=== PATIENT | female | born 1940 | race Caucasian/White ===

== ENCOUNTER 2022-06-15 12:00 | Outpatient (RCR) | payer MEDICARE, SELFPAY | END 2023-05-18 08:08 | disposition home or self-care (01) | PROVIDERS: Visit Provider Physician Assistant | DX: M54.50 Low back pain, unspecified (principal); Z51.89 Encounter for other specified aftercare | CPT/HCPCS: 97110; 97140 ==

== ENCOUNTER 2023-09-21 10:17 | Observation (INO) | payer MEDICARE, SELFPAY ==
[2023-09-21 10:24] VITALS: BP 123/80; PULSE 89; RESP 18; TEMP 36.8; O2SAT 99; BMI 26.0
--- NOTE | 2023-09-21 10:56 | CRLHL7_ITS ---
For Patients: As a result of the Century Cures Act, medical imaging exams and procedure reports are released immediately into your electronic medical record. You may view this report before your referring provider. If you have questions, please contact your health care provider. INDICATION: Hematochezia TECHNIQUE: CTA abdomen and pelvis acquired without and with 100 cc Omnipaque 350 IV contrast. COMPARISON: None. FINDINGS: Lower chest: Left basilar linear atelectasis/scarring. The liver, gallbladder, spleen, pancreas, and bilateral adrenal glands are within normal limits. The kidneys perfuse in a normal fashion. There are multiple simple appearing renal cysts bilaterally. No renal calculi or hydroureteronephrosis. The bladder is within normal limits with some minimal bladder wall near the ureterovesicular junctions without definitive appreciable bladder wall mass. The uterus and bilateral adnexa are within normal limits. There is no evidence of bowel obstruction. The appendix is normal. Bowel wall thickening and minimal pericolonic inflammatory changes of the sigmoid colon with several associated diverticula. Findings are suggestive of acute, uncomplicated sigmoid diverticulitis without definitive CT evidence of a diverticular bleed. No free fluid or free air. No pathologically enlarged lymph nodes throughout the abdomen or pelvis. No abdominal aortic aneurysm. No significant atherosclerotic changes. No appreciable diverticular bleed. Tiny fat containing umbilical hernia. No acute fracture or malalignment. No suspicious osseous lesions. IMPRESSION: 1. CT findings suggestive of acute, uncomplicated sigmoid diverticulitis. No free fluid or free air. No intra-abdominal abscess. 2. No definitive CTA evidence to suggest a diverticular bleed. Please note that all CT scans at this facility use dose modulation, iterative reconstruction, and/or weight-based dosing when appropriate to reduce radiation dose to as low as reasonably achievable. Dictated by Heber Santana MD @ 09/21/2023 2:04:15 PM (Electronically Signed)
--- NOTE | 2023-09-21 11:01 | ED_ITS ---
HPI - General Adult General Date Seen: 09/21/23 Chief complaint: GI Bleed Stated complaint: Rectal bleeding Time Seen by Provider: 09/21/23 10:37 Source: patient Mode of arrival: ambulatory Limitations: no limitations History of Present Illness HPI narrative: Patient is an 83-year-old woman who presents for evaluation of GI bleeding. She notes that yesterday she was helping to set [facility] for a [facility] [employer] when she had abrupt onset of discomfort in her lower and mid abdomen. She says this isn't entirely unusual for her as she is chronically constipated, but she thought she might be sick and so she ran to the bathroom. She says nothing happened then but when she came back out she again felt nauseated and then did vomit once at [employer]. She had persistent abdominal pain after that, went home and then had some loose stools which became blood tinged and ultimately she had passage of some clot and bright red blood. She does have a history of some hemorrhoids but has never had problems like this. She is not anticoagulated. Only medication is lisinopril. No fevers, no further vomiting. She does not smoke or drink. History of Caesarean section, no other abdominal surgeries. Normal colonoscopy by her report at age 76. Related Data Home Medications Medication Instructions Recorded Confirmed alprazolam 0.25 mg tablet 0.25 mg PO DAILY PRN 09/21/23 09/21/23 dorzolamide 22.3 mg-timolol 6.8 1 drp ophthalmic (eye) BID 09/21/23 09/21/23 mg/mL eye drops lisinopril 10 1 tab PO DAILY 09/21/23 09/21/23 mg-hydrochlorothiazide 12.5 mg tablet Allergies Allergy/AdvReac Type Severity Reaction Status Date / Time No Known Drug Allergies Allergy Verified 09/21/23 10:31 Review of Systems Status of ROS: Reports: 10 or more systems reviewed and unremarkable except as noted in History and below [facility] Medical History (Updated 09/21/23 @ 13:17 by Becki Franklin MD) Diverticulosis ?K57.90 - Diverticulosis of intestine, part unspecified, without perforation or abscess without bleeding (ICD-10) H/O Mohs micrographic surgery for skin cancer ?Z85.828 - Personal history of other malignant neoplasm of skin (ICD-10) ?Z98.890 - Other specified postprocedural states (ICD-10) Osteopenia ?M85.80 - Other specified disorders of bone density and structure, unspecified site (ICD-10) Surgical History (Updated 09/21/23 @ 12:44 by Brittni Valerio MD) H/O LEEP ?Z98.890 - Other specified postprocedural states (ICD-10) Social History Smoking Status: Never smoker Do you use any of these nicotine containing products: None How often do you have a drink containing alcohol: never How often do you have six or more drinks on one occasion: Never AUDIT-C Alcohol total score: 0 Non-prescribed substance use: denies use Exam Narrative: Exam Narrative: Vital signs as noted above. In general, an alert, well-appearing patient. Head: Normocephalic, atraumatic. Eyes: Pupils are equal reactive. Extraocular movements are full. Conjunctivae are normal. ENT: Mucous membranes are moist. Throat is normal. Neck: Supple without lymphadenopathy. Heart: Regular rate and rhythm. No murmur or rub. Lungs: Clear bilaterally. No increased work of breathing, crackles or wheezes. Abdomen: Soft and nondistended. She has some tenderness localized primarily to the left lower quadrant without rebound guarding or rigidity. Rectal: Unremarkable external hemorrhoids. Dark red bloody matter noted on the glove. No masses. Extremities: Well perfused. No edema. No calf tenderness. Pulses intact. Neurologic: Patient is alert and oriented to person and place. Speech is fluent. Face is symmetric. Moves all extremities equally. Affect: Normal. Skin: Warm and dry. Well perfused. Const: Vital Signs, click to edit/add: Vital Signs - 24 hr 09/21/23 10:24 09/21/23 12:48 Temperature 98.2 F Pulse Rate [Right Pulse Oximeter] 89 76 Respiratory Rate 18 20 Blood Pressure [Ri ght Upper Arm] 123/80 128/76 Pulse Oximetry 99 96 Oxygen Delivery Me thod Room Air Room Air Documenting provider has reviewed patient's vital signs: yes Course Course ED Course: Fecal occult blood was sent but I presume this will be positive. An IV is established, routine labs as well as a CT scan of the abdomen and pelvis, GI bleed protocol is ordered. Would anticipate admission to the hospital for observation and decision as further workup as well as trending hemoglobins. Labs are reassuring. White blood cell count is normal at 8.8, hemoglobin is 15.5. Platelets normal. INR is 0.9. Metabolic panel unremarkable, lactate 1, LFTs aside from an AST of 42 are normal. CRP mildly elevated at 3.3. Fecal occult blood was positive. CT scan of the abdomen has been done but is not read yet. Case was discussed with hospitalist and she has been excepted on the hospitalist service. Will follow up on CT results. No further bleeding while in the emergency department. Vital Signs Vital signs: Initial Vital Signs Temperature 98.2 F 09/21/23 10:24 Temperature Source Temporal Artery Scan 09/21/23 10:24 Pulse Rate 89 09/21/23 10:24 Pulse Rhythm Regular 09/21/23 10:24 Respiratory Rate 18 09/21/23 10:24 Blood Pressure 123/80 09/21/23 10:24 Blood Pressure Mean 94 09/21/23 10:24 Blood Pressure Position Sitting 09/21/23 10:24 Pulse Oximetry 99 09/21/23 10:24 Oxygen Delivery Method Room Air 09/21/23 10:24 Vital Signs Temperature 98.2 F 09/21/23 10:24 Pulse Rate 89 09/21/23 10:24 Respiratory Rate 18 09/21/23 10:24 Blood Pressure 123/80 09/21/23 10:24 Pulse Oximetry 99 09/21/23 10:24 Oxygen Delivery Method Room Air 09/21/23 10:24 Temperature 98.2 F 09/21/23 10:24 Pulse Rate 76 09/21/23 12:48 Respiratory Rate 20 09/21/23 12:48 Blood Pressure 128/76 09/21/23 12:48 Pulse Oximetry 96 09/21/23 12:48 Oxygen Delivery Method Room Air 09/21/23 12:48 Medications Administered Medications: Discontinued Medications Generic Name Dose Route Start Last Admin Trade Name Freq PRN Reason Stop Dose Admin Pantoprazole Sodium 40 mg 09/21/23 10:56 09/21/23 11:17 Pantoprazole Sodium 40 Mg Inj IVP 09/21/23 10:57 40 mg ONCE ONE Administration Medical Decision Making Lab Data Labs: Lab Results 09/21/23 09/21/23 Range/Units 11:03 11:10 WBC 8.81 (4.50-11.00) K/uL RBC 5.15 (4.00-5.20) m/uL Hgb 15.5 (12.0-16.0) gm/dL Hct 48.0 (33.0-51.0) % MCV 93 (80-100) fL MCH 30 (26-34) pg MCHC 32 (32-36) gm/dL RDW Coeff of Mis 13.3 (11.5-15.5) % Plt Count 194 (140-440) K/uL Neut % (Auto) 75.1 H (42.0-72.0) % Lymph % (Auto) 15.2 L (20-44) % Childress % (Auto) 8.3 (0.0-11.0) % Eos % (Auto) 0.8 (0.0-7.0) % Baso % (Auto) 0.5 (0.0-3.0) % Neut # (Auto) 6.60 (1.7-7.0) K/uL Lymph # (Auto) 1.30 (0.90-2.90) K/uL Childress # (Auto) 0.70 (0.00-0.90) K/UL Eos # (Auto) 0.07 (0.00-0.50) K/uL Baso # (Auto) 0.04 (0.00-0.30) K/uL Abs Immat Gran (auto) 0.01 (0.00-0.30) K/uL Imm/Tot Granulo (auto) 0.1 % INR 0.90 L (0.91-1.10) Sodium 138 (135-149) mmol/L Potassium 3.5 L (3.6-5.1) mmol/L Chloride 99 (96-114) mmol/L Carbon Dioxide 30 (20-32) mmol/L Anion Gap 9 (7-15) mEq/L BUN 30 (7-30) mg/dL Creatinine 0.8 (0.5-1.5) mg/dL Estimated Creat Clear 42.18 Estimated GFR 74 ml/min Glucose 113 (60-115) mg/dL Lactate 1.0 (0.5-1.9) mmol/L Calcium 9.7 (8.4-10.6) mg/dL Total Bilirubin 1.1 (0.1-1.5) mg/dL Direct Bilirubin 0.1 (0.0-0.5) mg/dL AST 42 H (12-35) U/L ALT 31 (4-35) U/L Alkaline Phosphatase 46 (40-150) U/L C-Reactive Protein 3.3 H (0.5-1.0) mg/dL Total Protein 7.6 (6.0-8.3) g/dL Albumin 4.5 (3.3-5.0) g/dL Stool Occult Blood Positive A (Negative) Blood Type O Negative Antibody Screen NEGATIVE Discharge Plan Discharge Clinical Impression: Lower gastrointestinal hemorrhage Patient Disposition: Admitted As Observation Condition: Stable
--- OUTSIDE RECORDS SUMMARY | 2023-09-21 11:10 | XMS_ITS | Continuity of Care Document ---
Author Name Unknown Organization [facility] Address [address] [place] [address] Phone Care Team Providers Care Shuttle Preparation Supervisor Name Role Phone Priscila Vaughn Unavailable Unavailable Allergies, Adverse Reactions, Alerts Substance Reaction Status Criticality No Known Allergies Active No Inform ation Medications Medication Instructions Dosage Effective Dates (start - stop) Status Comments gabapentin 300 mg capsule take 1 capsule by oral route 3 times every day 300 MG - Active Procedures Procedure Date Office/Outpatient Visit,Est, Mod 2021 Office/Outpatient Visit,New, [facility] 2021 Advance Directives Directive Yes / No Effective Date File Name No Information Encounters Encounter Description Practice Location Reason(s) For Visit Diagnoses Date Provider Providers Copied on Encounter Office/Outpat ient Visit,Est, Mod [facility], [address], [place], [place], [id number], [place] tel:[phone] [facility] Spinal stenosis, lumbar region with neurogenic claudication Lolly Francois. [facility], [address] [place] [address] [address], [place], [address], [place]. tel:[phone] Referring Provider: Referring Self, [address] [facility] [address], [place], [address]. tel:[phone] Office/Outpat ient Visit,New, [facility], [address], [place], [place], [id number], [place] tel:[phone] [facility] Radiculopathy, lumbar region Blas Bragg. [facility], [address], [place], [place], [address], [place]. tel:[phone] Referring Provider: Yemi Weiner, [facility] [address], [place], [address]. tel:[phone] Family History Family Member Type Diagnosis Age At Onset No Information Payers Payer name Insurance type Covered libertarian ID Authorjessica stapleton(s) [facility] [id number] Social History Type Description Quantity Date Captured Comments Alcohol Use Details Unknown Caffeine Use Details Unknown Tobacco Use Status No Information Smoking Status No Information Sex Female Vital Signs Date / Time: Height Weight BMI Pulse Rate Blood Pressure Temperature Respiratory Rate Body Surface Area Head Circumference Head Circ. Percentile Wt./Felix. Percentile BMI percentile Pulse Ox Inhaled Ox 1:18 PM 67.00 in 77.111 kg (170.00 lbs) 26.6 3 kg/m eter (2) Chief Complaint And Reason For Visit No Information Reason For Referral Reason For Referral No Information History Of Present Illness Encounter Date Complaint History Of Prese nt Illness No Information Functional Status Date Functional Assessmen t No Information Instructions Date Instruction Additional Infor mation No Information Assessments Type Assessment Date assessment Spinal stenosis, lumbar region w ith neurogenic claudication Patient Care Teams Name Effective Dates (start - stop) Status Members No Information
--- OUTSIDE RECORDS SUMMARY | 2023-09-21 11:11 | XMS_ITS | Continuity of Care Document ---
Author Name Unknown Organization [facility] Address [address] [place] [address] Phone Care Team Providers Care Cloth Folder Hand Name Role Phone Priscila Vaughn Unavailable Unavailable Allergies, Adverse Reactions, Alerts Substance Reaction Status Criticality No Known Allergies Active No Inform ation Medications Medication Instructions Dosage Effective Dates (start - stop) Status Comments gabapentin 300 mg capsule take 1 capsule by oral route 3 times every day 300 MG - Active Procedures Procedure Date Office/Outpatient Visit,Est, Mod 2021 Office/Outpatient Visit,New, [facility] 2021 Advance Directives Directive Yes / No Effective Date File Name No Information Encounters Encounter Description Practice Location Reason(s) For Visit Diagnoses Date Provider Providers Copied on Encounter Office/Outpat ient Visit,Est, Mod [facility], [address], [place], [place], [id number], [place] tel:[phone] [facility] Spinal stenosis, lumbar region with neurogenic claudication Lolly Francois. [facility], [address] [place] [address] [address], [place], [address], [place]. tel:[phone] Referring Provider: Referring Self, [address] [facility] [address], [place], [address]. tel:[phone] Office/Outpat ient Visit,New, [facility], [address], [place], [place], [id number], [place] tel:[phone] [facility] Radiculopathy, lumbar region Blas Bragg. [facility], [address], [place], [place], [id number], [place]. tel:[phone] Referring Provider: Yemi Weiner, [facility] [address], [place], [address]. tel:[phone] Family History Family Member Type Diagnosis Age At Onset No Information Payers Payer name Insurance type Covered democrat ID Authorjessica stapleton(s) [facility] [id number] Social History Type Description Quantity Date Captured [...]
[2023-09-21] MEDS: PANTOPRAZOLE SODIUM 40 MG INJ IVP (11:17)
[2023-09-21 11:25] LABS: Basophils Absolute Auto 0.04 K/uL (0.00-0.30); Basophils Percent Auto 0.5 % (0.0-3.0); Eosinophils Absolute Auto 0.07 K/uL (0.00-0.50); Eosinophils Percent Auto 0.8 % (0.0-7.0); Hemoglobin* 15.5 gm/dL (12.0-16.0); Immature Granulocytes Abs Auto 0.01 K/uL (0.00-0.30); Immature Granulocytes Pct Auto 0.1 %; Lymphocytes Percent Auto 15.2 % (20-44); Mean Corpuscular HGB Conc 32 gm/dL (32-36); Mean Corpuscular Hemoglobin 30 pg (26-34); Mean Corpuscular Volume 93 fL (80-100); Monocytes Percent Auto 8.3 % (0.0-11.0); Neutrophils Percent Auto 75.1 % (42.0-72.0); Platelet Count* 194 K/uL (140-440); RDW Coefficient of Variation % 13.3 % (11.5-15.5); Red Blood Count 5.15 m/uL (4.00-5.20); White Blood Count* 8.81 K/uL (4.50-11.00)
[2023-09-21 11:29] LABS: Slide Review Reflex No
[2023-09-21 11:34] LABS: Fecal Occult Blood* Positive (Negative)
[2023-09-21 11:54] LABS: Prothrombin Time 12.7 Seconds
[2023-09-21 11:59] LABS: Albumin* 4.5 g/dL (3.3-5.0); Chloride* 99 mmol/L (96-114)
[2023-09-21 12:00] LABS: Potassium* 3.5 mmol/L (3.6-5.1); Sodium* 138 mmol/L (135-149)
[2023-09-21 12:02] LABS: Creatinine* 0.8 mg/dL (0.5-1.5); Est. Creatinine Clearance* 42.18; Estimated Glomerular Filt Rate 74 ml/min
[2023-09-21 12:03] LABS: Alanine Aminotransferase* 31 U/L (4-35); Alkaline Phosphatase* 46 U/L (40-150); Anion Gap 9 mEq/L (7-15); Aspartate Amino Transferase* 42 U/L (12-35); Bilirubin Direct* 0.1 mg/dL (0.0-0.5); Bilirubin Total* 1.1 mg/dL (0.1-1.5); Blood Urea Nitrogen* 30 mg/dL (7-30); Carbon Dioxide* 30 mmol/L (20-32); Glucose* 113 mg/dL (60-115); Total Protein* 7.6 g/dL (6.0-8.3)
[2023-09-21 12:04] LABS: Calcium* 9.7 mg/dL (8.4-10.6)
[2023-09-21 12:06] LABS: C Reactive Protein* 3.3 mg/dL (0.5-1.0)
[2023-09-21 12:48] VITALS: BP 128/76; PULSE 76; RESP 20; O2SAT 96
--- NOTE | 2023-09-21 13:17 | PM.IMHP1 ---
Hospitalist- H&P: HPI History of Present Illness Date Seen: 09/21/23 Chief complaint: Rectal bleeding Narrative: Julianne Ramos is a 83 year old female who presented to the hospital this morning for bloody stool. Yesterday, she was helping serve food for a at [employer] and noted acute onset of abdominal cramping (not an atypical symptom for her, given history of chronic constipation). After the cramping, she did have 1 episode of nonbloody emesis. The cramping continued, and upon arrival home she had 1 episode of diarrhea. A few hours later she had an episode of bloody diarrhea, and noted passage of bright red blood per rectum approximately three times from overnight into this morning. She has never had hematochezia previously. History of hemorrhoids. Upon chart review, she had diverticulosis on colonoscopy in 2006, last colonoscopy per chart review was normal in 2017. No recent travel, no sick contacts. She did have some pasta elie at [employer] yesterday, no other new foods noted. Denies any dizziness or lightheadedness, no presyncope. No urinary symptoms. Julianne is on no blood thinners. ER course and findings: - Hgb 15.5, normal platelets - K of 3.5 - afebrile, normotensive, no tachycardia - CTA abdomen/pelvis exhibited uncomplicated diverticulitis, no evidence of acute diverticular bleed Medical history updated below. PCP is Dr. Celia Mccain in [place]. Review of Systems Status of ROS: Reports: 10 or more systems reviewed and unremarkable except as noted in History and below Narrative: - no CP, no dyspnea - no recent travel or sick contacts - no skin concerns, no arthralgias - no back pain PFSH [facility] Medical History (Updated 09/21/23 @ 14:18 by Brittni Valerio MD) Glaucoma ?H40.9 - Unspecified glaucoma (ICD-10) Essential hypertension ?I10 - Essential (primary) hypertension (ICD-10) Diverticulosis ?K57.90 - Diverticulosis of intestine, part unspecified, without perforation or abscess without bleeding (ICD-10) H/O Mohs micrographic surgery for skin cancer ?Z85.828 - Personal history of other malignant neoplasm of skin (ICD-10) ?Z98.890 - Other specified postprocedural states (ICD-10) Osteopenia ?M85.80 - Other specified disorders of bone density and structure, unspecified site (ICD-10) Surgical History (Updated 09/21/23 @ 13:22 by Brittni Valerio MD) H/O section ?Z98.891 - History of uterine scar from previous surgery (ICD-10) H/O LEEP ?Z98.890 - Other specified postprocedural states (ICD-10) Family History (Updated 09/21/23 @ 13:22 by Brittni Valerio MD) Mother Diverticulitis Social History (Updated 09/21/23 @ 13:25 by Brittni Valerio MD) Narrative: Lives with Sang in [place], he would be medical decision maker if needed. Three adult children in [place]. Nonsmoker, rare alcohol, previously worked in the school system. Full code. Smoking Status: Never smoker Do you use any of these nicotine containing products: None How often do you have a drink containing alcohol: never How often do you have six or more drinks on one occasion: Never AUDIT-C Alcohol total score: 0 Non-prescribed substance use: denies use Meds Home Medications and Allergies Home Medications Medication Instructions Recorded Confirmed Type alprazolam 0.25 mg tablet 0.25 mg PO DAILY PRN 09/21/23 09/21/23 History dorzolamide 22.3 mg-timolol 6.8 1 drp ophthalmic (eye) BID 09/21/23 09/21/23 History mg/mL eye drops lisinopril 10 1 tab PO DAILY 09/21/23 09/21/23 History mg-hydrochlorothiazide 12.5 mg tablet Allergies Allergy/AdvReac Type Severity Reaction Status Date / Time No Known Drug Allergies Allergy Verified 09/21/23 10:31 Exam Narrative: Exam Narrative: GEN: Alert and oriented, laying comfortably in bed HEENT: EOMIs bilaterally, no scleral icterus or conjunctival pallor CV: RRR, No concerning murmurs R: LCTA bilaterally without concerning wheezing, air movement adequate Ab: soft, nondistended, + discomfort with palpation bilateral lower quadrants, no rebound or guarding Rectal: deferred (performed in ED, + hematochezia) Ext: wwp, no concerning edema Skin: No concerning skin lesions or rashes on exposed skin Neuro: No focal deficits Psych: Appropriate Const: Vital Signs, click to edit/add: Vital Signs - 24 hr 09/21/23 10:24 09/21/23 12:48 Temperature 98.2 F Pulse Rate [Right Pulse Oximeter] 89 76 Respiratory Rate 18 20 Blood Pressure [Ri ght Upper Arm] 123/80 128/76 Pulse Oximetry 99 96 Oxygen Delivery Me thod Room Air Room Air Hospitalist - H&P: Result Labs Labs: Short CBC 09/21/23 Range/Units 11:10 WBC 8.81 (4.50-11.00) K/uL Hgb 15.5 (12.0-16.0) gm/dL Hct 48.0 (33.0-51.0) % Plt Count 194 (140-440) K/uL BMP 09/21/23 11:10 Sodium 138 Potassium 3.5 L Chloride 99 Carbon Dioxide 30 BUN 30 Creatinine 0.8 Glucose 113 Calcium 9.7 Liver Function 09/21/23 Range/Units 11:10 Total Bilirubin 1.1 (0.1-1.5) mg/dL Direct Bilirubin 0.1 (0.0-0.5) mg/dL AST 42 H (12-35) U/L ALT 31 (4-35) U/L Alkaline Phosphatase 46 (40-150) U/L Albumin 4.5 (3.3-5.0) g/dL Assessment and Plan Assessment and plan (1) Hematochezia: Problem comment: - likely diverticular bleed vs internal hemorrhoids - awaiting formal radiology read of CT scan - low dose IVFs, clear liquid diet, serial hemoglobin Status: Acute (2) Diverticulitis: Problem comment: - incidentally noted on 09/21/23 CT - afebrile with normal WBC; defer antibiotics at this time after discussion with patient Status: Acute (3) Essential hypertension: Problem comment: - on Lisinopril-HCTZ at home - will hold on admission 09/21 given bleeding and risk for hypotension Status: Acute Plan - per above - SCDs for ppx (holding pharmacologic ppx given bleeding) - Julianne's son and sister updated at bedside, questions answered
[2023-09-21 13:40] VITALS: BP 131/83; PULSE 77; RESP 14; TEMP 36.4; O2SAT 98; BMI 25.9
[2023-09-21] MEDS: POTASSIUM BICARB 25 MEQ EFFERVESCENT TAB PO (14:11)
[2023-09-21] MEDS: 0.9 % SODIUM CHLORIDE 1000 ml 1,000 ML 125 ML IV ×2 (14:12→22:03)
--- NOTE | 2023-09-21 14:44 | PC.NURSE ---
End of Shift: Patient arrived to floor about 1330, patient pleasant and cooperative. Patient vitally stable, lungs clear, BS WNL, IV running NS at 125. Patient independent in room. Patient has waves of cramping abdominal pain, rates abdominal tenderness 2/10. Patient has not used the toilet since admission. Patient comfortably in bed visiting with visitors.
[2023-09-21 15:00] VITALS: BP 122/68; PULSE 75; RESP 20; TEMP 36.3; O2SAT 96
--- NOTE | 2023-09-21 15:18 | NUTR.NU ---
RDN with MD consult. Patient admitted today for Hematochezia, found to have diverticulitis. History of diverticulosis. Patient is currently on a clear liquid diet. Patient is not appropriate to visit at this time. RDN will attempt to visit with patient at later date.
[2023-09-21] MEDS: ACETAMINOPHEN 325 MG TABLET 975 MG PO (16:21)
[2023-09-21 16:38] LABS: Hemoglobin* 14.5 gm/dL (12.0-16.0)
[2023-09-21 19:00] VITALS: BP 114/64; PULSE 73; TEMP 36.6; O2SAT 94
[2023-09-21] MEDS: HYDROmorphone 0.5 mg/0.5 ml inj IVP (20:32)
[2023-09-21] MEDS: DORZOLAMIDE/TIMOLOL 2-0.5% OPHTH 1 DROP EYE-BOTH (20:36)
[2023-09-21] MEDS: ERTAPENEM 1 GM in 0.9 % SODIUM CHLORIDE Mini-bag 100 ML IVPB (20:39)
[2023-09-21 21:57] LABS: Hemoglobin* 13.7 gm/dL (12.0-16.0)
[2023-09-21] MEDS: SIMETHICONE 80 MG TAB.CHEW 160 MG PO (22:50)
[2023-09-21 23:00] VITALS: BP 102/65; PULSE 71; RESP 18; TEMP 36.6; O2SAT 90
--- NOTE | 2023-09-21 23:43 | PC.NURSE ---
Patient pleasant, alert and oriented. Ambulates independently. Given PRN Tylenol and Dilaudid for lower abdominal pain rated 8-9/10. Patient describes pain as intense cramping that comes and goes. Tolerated clear liquid diet. Reported a brief episode of nausea?at HS that passed. Declined PRN Zofran when offered. VSS. ??
[2023-09-22 03:00] VITALS: BP 91/48; PULSE 73; RESP 18; TEMP 36.6; O2SAT 93
--- NOTE | 2023-09-22 06:42 | PC.NURSE ---
Shift note:Pt is doing well this morning, no fever, bloody stool and N/V reported but did complained of mild abdominal pain and tenderness. Ambulated independently to and from BR. Alert and oriented.
[2023-09-22 06:58] LABS: Basophils Absolute Auto 0.04 K/uL (0.00-0.30); Basophils Percent Auto 0.5 % (0.0-3.0); Eosinophils Absolute Auto 0.05 K/uL (0.00-0.50); Eosinophils Percent Auto 0.6 % (0.0-7.0); Hematocrit 41.2 % (33.0-51.0); Hemoglobin* 13.3 gm/dL (12.0-16.0); Immature Granulocytes Abs Auto 0.01 K/uL (0.00-0.30); Immature Granulocytes Pct Auto 0.1 %; Lymphocytes Percent Auto 19.5 % (20-44); Mean Corpuscular HGB Conc 32 gm/dL (32-36); Mean Corpuscular Hemoglobin 30 pg (26-34); Mean Corpuscular Volume 94 fL (80-100); Monocytes Percent Auto 7.8 % (0.0-11.0); Neutrophils Absolute Auto 5.61 K/uL (1.7-7.0); Neutrophils Percent Auto 71.5 % (42.0-72.0); Platelet Count* 170 K/uL (140-440); RDW Coefficient of Variation % 13.4 % (11.5-15.5); Red Blood Count 4.38 m/uL (4.00-5.20); White Blood Count* 7.85 K/uL (4.50-11.00)
[2023-09-22] MEDS: 0.9 % SODIUM CHLORIDE 1000 ml 1,000 ML 125 ML IV (06:58)
[2023-09-22 07:02] LABS: Slide Review Reflex No
[2023-09-22 07:27] LABS: Albumin* 3.5 g/dL (3.3-5.0); Chloride* 105 mmol/L (96-114)
[2023-09-22 07:28] LABS: Potassium* 3.8 mmol/L (3.6-5.1); Sodium* 139 mmol/L (135-149)
[2023-09-22 07:30] LABS: Creatinine* 0.7 mg/dL (0.5-1.5); Est. Creatinine Clearance* 42.18; Estimated Glomerular Filt Rate 86 ml/min
[2023-09-22 07:31] LABS: Alanine Aminotransferase* 33 U/L (4-35); Alkaline Phosphatase* 52 U/L (40-150); Anion Gap 5 mEq/L (7-15); Aspartate Amino Transferase* 37 U/L (12-35); Bilirubin Total* 0.5 mg/dL (0.1-1.5); Blood Urea Nitrogen* 17 mg/dL (7-30); Carbon Dioxide* 29 mmol/L (20-32); Glucose* 92 mg/dL (60-115); Total Protein* 6.1 g/dL (6.0-8.3)
[2023-09-22 07:32] LABS: Calcium* 8.4 mg/dL (8.4-10.6)
[2023-09-22 07:34] LABS: C Reactive Protein* 4.8 mg/dL (0.5-1.0)
[2023-09-22 07:45] VITALS: BP 109/70; PULSE 74; RESP 18; TEMP 36.4; O2SAT 96
[2023-09-22] MEDS: DORZOLAMIDE/TIMOLOL 2-0.5% OPHTH 1 DROP EYE-BOTH ×2 (09:24→23:23)
--- NOTE | 2023-09-22 10:43 | P.IMPN_ITS ---
Progress Note: A&P Assessment and plan (1) Hematochezia: Problem details: - likely diverticular bleed - following Hgb (15.5-->13.3), hemodynamically stable Status: Acute (2) Diverticulitis: Problem details: - incidentally noted on 09/21/23 CT - afebrile with normal WBC - Ertapenem initiated 09/21 for worsening abdominal pain Status: Acute (3) Essential hypertension: Problem details: - on Lisinopril-HCTZ at home - will hold on admission 09/21 given bleeding and risk for hypotension Status: Acute Plan - per above - continue to follow Hgb, advance diet - likely d/c home in 1-2 days pending clinical stability Subjective Date Seen: 09/22/23 Interval history: Julianne had a flare of abdominal pain overnight, Ertapenem initiated. No hematochezia overnight. Passing flatus, no BM. Tolerating clears. +UOP. No fevers, labs stable. No concerns for hospitalist team. Exam Narrative: Exam Narrative: GEN: Alert and oriented, nontoxic in appearance HEENT: EOMIs bilaterally, no scleral icterus CV: RRR, No concerning murmurs R: LCTA bilaterally without concerning wheezing, air movement adequate Ab: Mild distention but soft, + ttp bilateral lower quadrants, no guarding, + BS Ext: wwp, no concerning edema Skin: No concerning skin lesions or rashes on exposed skin Neuro: Nonfocal Psych: Appropriate Const: Vital Signs, click to edit/add: Vital Signs - 24 hr 09/21/23 12:48 09/21/23 13:40 09/21/23 15:00 Temperature 97.6 F 97.4 F L Pulse Rate [Pulse Oximeter] 77 75 Pulse Rate [Right Pulse Oximeter] 76 Respiratory Rate 20 14 20 Blood Pressure [Le ft Arm] 122/68 Blood Pressure [Ri ght Arm] 131/83 Blood Pressure [Ri ght Upper Arm] 128/76 Pulse Oximetry 96 98 96 Oxygen Delivery Me thod Room Air Room Air Room Air 09/21/23 19:00 09/21/23 23:00 09/22/23 03:00 Temperature 97.9 F 98 F 97.9 F Pulse Rate [Pulse Oximeter] 73 71 73 Pulse Rate [Right Pulse Oximeter] Respiratory Rate 18 18 Blood Pressure [Le ft Arm] 114/64 102/65 91/48 L Blood Pressure [Ri ght Arm] Blood Pressure [Ri ght Upper Arm] Pulse Oximetry 94 90 93 Oxygen Delivery Me thod Room Air Room Air Room Air 09/22/23 07:45 Temperature 97.6 F Pulse Rate [Pulse Oximeter] 74 Pulse Rate [Right Pulse Oximeter] Respiratory Rate 18 Blood Pressure [Le ft Arm] 109/70 Blood Pressure [Ri ght Arm] Blood Pressure [Ri ght Upper Arm] Pulse Oximetry 96 Oxygen Delivery Me thod Room Air Labs Labs: Laboratory Results - last 24 hr 09/21/23 09/21/23 09/21/23 11:03 11:10 16:31 WBC 8.81 RBC 5.15 Hgb 15.5 14.5 Hct 48.0 MCV 93 MCH 30 MCHC 32 RDW Coeff of Mis 13.3 Plt Count 194 Neut % (Auto) 75.1 H Lymph % (Auto) 15.2 L [place] % (Auto) 8.3 Eos % (Auto) 0.8 Baso % (Auto) 0.5 Neut # (Auto) 6.60 Lymph # (Auto) 1.30 [place] # (Auto) 0.70 Eos # (Auto) 0.07 Baso # (Auto) 0.04 Abs Immat Gran (auto) 0.01 Imm/Tot Granulo (auto) 0.1 INR 0.90 L Sodium 138 Potassium 3.5 L Chloride 99 Carbon Dioxide 30 Anion Gap 9 BUN 30 Creatinine 0.8 Estimated Creat Clear 42.18 Estimated GFR 74 Glucose 113 Lactate 1.0 Calcium 9.7 Total Bilirubin 1.1 Direct Bilirubin 0.1 AST 42 H ALT 31 Alkaline Phosphatase 46 C-Reactive Protein 3.3 H Total Protein 7.6 Albumin 4.5 Stool Occult Blood Positive A Blood Type O Negative Antibody Screen NEGATIVE 09/21/23 09/22/23 21:50 06:25 WBC 7.85 RBC 4.38 Hgb 13.7 13.3 Hct 41.2 MCV 94 MCH 30 MCHC 32 RDW Coeff of Mis 13.4 Plt Count 170 Neut % (Auto) 71.5 Lymph % (Auto) 19.5 L [place] % (Auto) 7.8 Eos % (Auto) 0.6 Baso % (Auto) 0.5 Neut # (Auto) 5.61 Lymph # (Auto) 1.50 [place] # (Auto) 0.60 Eos # (Auto) 0.05 Baso # (Auto) 0.04 Abs Immat Gran (auto) 0.01 Imm/Tot Granulo (auto) 0.1 INR Sodium 139 Potassium 3.8 Chloride 105 Carbon Dioxide 29 Anion Gap 5 L BUN 17 Creatinine 0.7 Estimated Creat Clear 42.18 Estimated GFR 86 Glucose 92 Lactate Calcium 8.4 Total Bilirubin 0.5 Direct Bilirubin AST 37 H ALT 33 Alkaline Phosphatase 52 C-Reactive Protein 4.8 H Total Protein 6.1 Albumin 3.5 Stool Occult Blood Blood Type Antibody Screen
[2023-09-22 11:00] VITALS: BP 100/68; PULSE 72; RESP 18; TEMP 36.6; O2SAT 99
--- NOTE | 2023-09-22 14:34 | PC.NURSE ---
shift note: pt up indept in room. iv patent. pt tolerating clrs. No BM's. denies pain
[2023-09-22 15:00] VITALS: BP 119/67; PULSE 77; RESP 18; TEMP 36.4; O2SAT 97
[2023-09-22 19:00] VITALS: BP 141/80; PULSE 75; RESP 18; TEMP 36.6; O2SAT 96
[2023-09-22] MEDS: ACETAMINOPHEN 325 MG TABLET 975 MG PO (20:00)
[2023-09-22] MEDS: ERTAPENEM 1 GM in 0.9 % SODIUM CHLORIDE Mini-bag 100 ML IVPB (23:22)
--- NOTE | 2023-09-22 23:25 | PC.NURSE ---
Nursing Care Hours: 0215-2657 Pt this shift calm and cooperative with cares, alert and oriented. Independent ambulation in room. Pain reported in LUQ after dinner, rated 5/10. Treated per eMAR and warm blankets provided, treatment effective. Encouraged to walk the smart to promote motility. Sm BM and scant blood clot reported but not observed by ghost writer. VSS.
[2023-09-22 23:29] VITALS: BP 155/66; PULSE 72; RESP 18; TEMP 36.7; O2SAT 94
[2023-09-23 04:11] VITALS: BP 110/72; PULSE 64; RESP 18; TEMP 36.6; O2SAT 90
--- NOTE | 2023-09-23 05:33 | PC.NURSE ---
2413-2695: Patient pleasant and cooperative. Independent in room. BS active. Mild abdomen ache after eating a yogurt. Afebrile. Denies N/V. Passed a few bloody clots but no stool. Voiding.
[2023-09-23 06:58] LABS: Lymphocytes Percent Auto 28.4 % (20-44); Mean Corpuscular HGB Conc 32 gm/dL (32-36); Mean Corpuscular Hemoglobin 30 pg (26-34); Mean Corpuscular Volume 95 fL (80-100); Monocytes Percent Auto 8.8 % (0.0-11.0); Neutrophils Percent Auto 60.1 % (42.0-72.0); Platelet Count* 175 K/uL (140-440); RDW Coefficient of Variation % 13.2 % (11.5-15.5); Red Blood Count 4.32 m/uL (4.00-5.20); White Blood Count* 5.66 K/uL (4.50-11.00)
[2023-09-23 06:59] LABS: Basophils Absolute Auto 0.05 K/uL (0.00-0.30); Basophils Percent Auto 0.9 % (0.0-3.0); Eosinophils Absolute Auto 0.09 K/uL (0.00-0.50); Eosinophils Percent Auto 1.6 % (0.0-7.0); Immature Granulocytes Abs Auto 0.01 K/uL (0.00-0.30); Immature Granulocytes Pct Auto 0.2 %; Lymphocytes Absolute Auto 1.61 K/uL (0.90-2.90); Slide Review Reflex No
[2023-09-23 07:34] LABS: Albumin* 3.3 g/dL (3.3-5.0); Chloride* 107 mmol/L (96-114); Sodium* 141 mmol/L (135-149)
[2023-09-23 07:35] LABS: Potassium* 3.6 mmol/L (3.6-5.1)
[2023-09-23 07:38] LABS: Alanine Aminotransferase* 28 U/L (4-35); Alkaline Phosphatase* 48 U/L (40-150); Anion Gap 6 mEq/L (7-15); Aspartate Amino Transferase* 34 U/L (12-35); Bilirubin Total* 0.4 mg/dL (0.1-1.5); Blood Urea Nitrogen* 12 mg/dL (7-30); Calcium* 8.5 mg/dL (8.4-10.6); Carbon Dioxide* 28 mmol/L (20-32); Creatinine* 0.7 mg/dL (0.5-1.5); Est. Creatinine Clearance* 42.18; Estimated Glomerular Filt Rate 86 ml/min; Glucose* 77 mg/dL (60-115); Total Protein* 5.9 g/dL (6.0-8.3)
[2023-09-23 07:40] VITALS: BP 133/73; PULSE 66; RESP 18; TEMP 36.7; O2SAT 96
[2023-09-23 07:41] LABS: C Reactive Protein* 3.7 mg/dL (0.5-1.0)
[2023-09-23] MEDS: DORZOLAMIDE/TIMOLOL 2-0.5% OPHTH 1 DROP EYE-BOTH (08:17)
[2023-09-23] MEDS: SODIUM CHLORIDE 0.9 % (FLUSH) 10 ML SYRINGE 5 ML IVF (08:18)
--- NOTE | 2023-09-23 10:04 | NUTR.NU ---
RDN with MD consult related to new diagnosis of diverticulitis. Past medical history includes diverticulosis in 2006. She reports not following a diet at home, however her diet is not good. She also reports suffering from chronic constipation in which she takes Miralax for. Miralax provides some relief, however cause diarrhea so she only takes it every 2-3 days. RDN offered diet education to patient related to diverticulitis, patient agreed without designated caregiver present. Patient was provided diet education on a low fiber diet. Discussed foods to include and foods to avoid until MD recommends advancing to high fiber diet. Education also provided on gradually increasing fiber and following a high fiber diet (25-35 grams/day) long-term. Encouraged adequate fluid intake of 8 cups+ daily and also the benefits of including a probiotic, such as yogurt, daily. Verbal and written information as well as sample menus provided on both diets from [facility]. Patient verbalized understanding. RDN's contact information was provided and patient was encouraged to contact RDN with questions.
--- NOTE | 2023-09-23 11:06 | P.DS_ITS ---
DS: Providers Provider Date Seen: 09/23/23 Date of admission: 09/21/23 13:31 Primary care physician: Dr. Mccain at [facility] Admitting Clinician: Abelino Vogt MD Attending Physician on discharge: Brittni Valerio MD Date of Discharge: 09/23/23 DS: Diagnosis Discharge Diagnosis (1) Hematochezia: Status: Acute Problem details: - likely diverticular bleed, improved during stay - following Hgb (15.5-->13.0), hemodynamically stable - discharge Hgb 13.0 (2) Diverticulitis: Status: Acute Problem details: - noted on 09/21/23 CT - Ertapenem initiated 09/21 for worsening abdominal pain, patient remained afebrile with normal WBC during stab - discharge home on course of Augmentin (3) Essential hypertension: Status: Acute Problem details: - on Lisinopril-HCTZ at home - held during stay given softer BPs (asymptomatic) - held upon discharge given BP of 110/72, 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 Imaging revealed diverticulitis without any source of bleeding. Hematochezia improved during stay, she had no symptoms of dizziness or lightheadedness. Hemoglobin 15.5 on admission, 13.0 on discharge. Treated with ertapenem for diverticulitis given discomfort. Remained afebrile with normal white count throughout stay. Julianne was able to tolerate a bland diet on hospital day 2 and was medically appropriate for discharge. She will see her PCP in close follow-up to discuss symptoms and outpatient blood pressure management. Status at Discharge Functional status at discharge: independent ambulation Overall status at discharge: patient is progressing back to baseline Time Spent with Patient Time attestation: Total time spent providing and/or coordinating discharge services: Time spent: Greater than 30 minutes Specific discharge activities: Patient Education, discharge medications, care coordination Exam Narrative: Exam Narrative: GEN: Alert and oriented, sitting comfortably in bedside chair, nontoxic HEENT: EOMIs bilaterally, no scleral icterus CV: RRR, No concerning murmurs, rubs, or gallops R: LCTA bilaterally without concerning wheezing, air movement adequate Abdomen: Mild distension, + tenderness to palpation in left lower quadrant without rebound or guarding Ext: wwp, no concerning edema Skin: No concerning skin lesions or rashes on exposed skin Neuro: Nonfocal Psych: Appropriate Const: Vital Signs, click to edit/add: Vital Signs - 24 hr 09/22/23 15:00 09/22/23 15:00 09/22/23 19:00 Temperature 97.5 F L 97.9 F Pulse Rate [Pulse Oximeter] 77 77 75 Respiratory Rate 18 18 18 Blood Pressure [Le ft Arm] 119/67 141/80 H Blood Pressure [Ri ght Arm] Pulse Oximetry 97 96 Oxygen Delivery Me thod Room Air Room Air 09/22/23 23:29 09/23/23 04:11 Temperature 98.1 F 97.9 F Pulse Rate [Pulse Oximeter] 72 64 Respiratory Rate 18 18 Blood Pressure [Le ft Arm] 155/66 H Blood Pressure [Ri ght Arm] 110/72 Pulse Oximetry 94 90 Oxygen Delivery Me thod Room Air Room Air DS: Data Data Completed and Pending Labs on day of discharge: Labs from last 24 hours 09/23/23 09/22/23 06:29 13:56 WBC 5.66 RBC 4.32 Hgb 13.0 13.0 Hct 41.0 MCV 95 MCH 30 MCHC 32 RDW Coeff of Mis 13.2 Plt Count 175 Neut % (Auto) 60.1 Lymph % (Auto) 28.4 [place] % (Auto) 8.8 Eos % (Auto) 1.6 Baso % (Auto) 0.9 Neut # (Auto) 3.40 Lymph # (Auto) 1.61 [place] # (Auto) 0.50 Eos # (Auto) 0.09 Baso # (Auto) 0.05 Abs Immat Gran (auto) 0.01 Imm/Tot Granulo (auto) 0.2 Sodium 141 Potassium 3.6 Chloride 107 Carbon Dioxide 28 Anion Gap 6 L BUN 12 Creatinine 0.7 Estimated Creat Clear 42.18 Estimated GFR 86 Glucose 77 Calcium 8.5 Total Bilirubin 0.4 AST 34 ALT 28 Alkaline Phosphatase 48 C-Reactive Protein 3.7 H Total Protein 5.9 L Albumin 3.3 Discharge Plan Discharge Disposition: Home, Self-Care Date of Admission: 09/21/23 13:31 Attending Provider on Discharge: Brittni Valerio Primary Care Provider: Provider,Not a Local Condition: Stable Anticipated Discharge Date/Time: 09/23/23 09:39 Discharge Medications: New amoxicillin-pot clavulanate 875-125 mg tablet 1 tab PO BID Qty: 14 0RF Continued dorzolamide-timolol 22.3-6.8 mg/mL drops 1 drp ophthalmic (eye) BID alprazolam 0.25 mg tablet 0.25 mg PO DAILY PRN Discontinued lisinopril-hydrochlorothiazide 10-12.5 mg tablet 1 tab PO DAILY Discharge Orders: Discharge Order (Routine); Ordered 09/23/23 Ordered By: Brittni Valerio Patient Education: Amoxicillin/Clavulanate Potassium (By mouth), Diverticulitis (DC) Additional Instructions: Antibiotics sent to pharmacy - take with a small amount of food twice/day. Make sure you're taking a probiotic while on these. STOP blood pressure medications until your followup with Dr. Mccain. You need to return to the hospital with any worsening bleeding, lightheadedness, or dizziness. Activity Level: Activity as Tolerated and No strenuous activity Discharge Diet: Low Fiber Diet Detail: slowly advance as tolerated - when diverticulitis flare has subsided, transition to high fiber diet Follow Up Appointments: Janis Louise [Other] - 09/26/23 1:45 pm Provider,Not a Local [Primary Care Provider] - (Needs appointment with Dr. Celia Mccain at [facility] ([facility] Phone number [phone]) Forms: Geneva Mars Info Instructions
--- NOTE | 2023-09-23 13:04 | PC.NURSE ---
Pt UAL in room, tolerated FL diet. States her pain is manageable this morning. Eval by Dr. Valerio. Adequate output. Pt verbalized understanding of d/c diagnosis, home meds, new prescription for ATB, f/up appt with specialist and sx to report urgently to physician. D/C'ed via w/c @ 1250pm w/her personal belongings with family as transportation.
== END 2023-09-23 12:50 | disposition home or self-care (01) ==
LOC: ED 13:17 → MEDSURG 13:32
PROVIDERS: Family Medicine; Admitting Provider Internal Medicine; Emergency Provider Emergency Medicine; Visit Provider Internal Medicine
DX: K57.92 Diverticulitis of intestine, part unspecified, without perforation or abscess without bleeding (principal); K92.1 Melena; R79.82 Elevated C-reactive protein (CRP); R10.9 Unspecified abdominal pain; I10 Essential (primary) hypertension; K59.04 Chronic idiopathic constipation; Z87.19 Personal history of other diseases of the digestive system; Z85.828 Personal history of other malignant neoplasm of skin; Z98.891 History of uterine scar from previous surgery; Z98.890 Other specified postprocedural states
CPT/HCPCS: 36415; 74174; 80048; 80053; 80076; 82270; 83605; 85018; 85025; 85610; 86140; 86850; 86900; 86901; 96361; 96365; 96366; 96375; 99284; A9270; C9113; G0378; J1170; J1335; J7030; Q9967